=== PATIENT | male | born 1985 | race Caucasian/White ===

== ENCOUNTER 2019-05-08 11:16 | Emergency (ER) | payer SELFPAY ==
[~2019-05-08] VITALS: Ht 177.8 cm; Wt 93.0 kg
[~2019-05-08 11:16] MED LIST: ADDERALL10 MG PO; AMOXICILLIN500 MG PO; GEODON20 MG PO; LOMOTIL 0.025 M1 TA1 PO; ZOFRAN ODT4 MG SL
[2019-05-08 11:17] VITALS: BP 109/73
[2019-05-08] MEDS ORDERED: LEVOFLOXACIN500 MG PO (13:19)
== END 2019-05-08 13:25 | disposition home or self-care (01) ==
LOC: ED 11:16
DX: J40 Bronchitis, not specified as acute or chronic (principal); R55 Syncope and collapse; Z79.899 Other long term (current) drug therapy

== ENCOUNTER → 2019-06-20 | Outpatient (CLI) | payer BC ==
[~2019-06-20] MED LIST changes: +LEVOFLOXACIN500 MG PO
[2019-06-21 16:07] LABS: VARICELLA-ZOSTER IGG 096206 468 index (Immune >165)
== END | disposition home or self-care (01) ==
LOC: LAB 17:08
PROVIDERS: Pediatrics
DX: Z01.84 Encounter for antibody response examination (principal)

== ENCOUNTER 2020-11-14 16:24 | Emergency (ER) | payer BC ==
[~2020-11-14] VITALS: Ht 177.8 cm; Wt 90.7 kg
[2020-11-14 16:38] VITALS: BP 149/93
[2020-11-14] MEDS ORDERED: DOXYCYCLINE100 M3 PO (16:57)
== END 2020-11-14 17:05 | disposition home or self-care (01) ==
LOC: ED 16:24
DX: L03.114 Cellulitis of left upper limb (principal); R11.0 Nausea; R53.1 Weakness; Z79.2 Long term (current) use of antibiotics; Z79.899 Other long term (current) drug therapy